=== PATIENT | female | born 1950 | race Caucasian/White ===

== ENCOUNTER 2018-04-25 09:08 | Emergency (ER) | payer SELFPAY ==
[~2018-04-25] VITALS: Ht 172.7 cm; Wt 77.1 kg
--- NOTE | 2018-04-25 10:00 | NUR ---
MSE DONE BY DR KHANNA AT BEDSIDE ROOM 04B. PATIENT A & O X4.
[2018-04-25] MEDS ORDERED: KETOROLAC TROMETHAMINE 30 MG INJ IM ONE (10:15)
[2018-04-25] MEDS ORDERED: KETOROLAC TROMETHAMINE 30 MG INJ ONE (10:21)
--- NOTE | 2018-04-25 10:28 | NUR ---
Patient discharged to home in stable conditon. Written and verbal after care instructions given. Patient and verbalizes understanding of instructions. Copy of test results given.
[2018-04-25 10:30] VITALS: BP 147/83
== END 2018-04-25 10:31 | disposition home or self-care (01) ==
LOC: ER 09:09
DX: M54.5 Low back pain (principal)
CPT/HCPCS: 74176; 99284; A4663; J1885

== ENCOUNTER 2019-01-20 22:55 | Emergency (ER) | payer MEDICARE ==
[~2019-01-20] VITALS: Ht 172.7 cm; Wt 72.6 kg
--- NOTE | 2019-01-20 23:39 | NUR ---
Dr. Lynch at bedside for MSE.
--- NOTE | 2019-01-20 23:49 | NUR ---
Pt out of ER for CT.
--- NOTE | 2019-01-21 | NUR ---
Pt back to ER from CT.
--- NOTE | 2019-01-21 01:41 | NUR ---
Patient discharged to home in stable conditon. Written and verbal after care instructions given. Patient verbalizes understanding of instructions. Patient ambulated out of ER with steady gait, no acute signs of distress, VSS, all belongings taken.
[2019-01-21 01:42] VITALS: BP 115/85
== END 2019-01-21 01:43 | disposition home or self-care (01) ==
LOC: ER 22:58
DX: K20.9 Esophagitis, unspecified (principal); Z88.0 Allergy status to penicillin
CPT/HCPCS: 70490; A4663

== ENCOUNTER 2022-12-26 22:11 | Emergency (ER) | payer MEDICARE ==
[~2022-12-26] VITALS: Ht 170.2 cm; Wt 77.1 kg
[2022-12-26] MEDS ORDERED: OXYCODONE/APAP 5-325 MG TABLET ONE (22:39)
[2022-12-26] MEDS ORDERED: ACETAMINOPHEN ES 500 MG TABLET ONE (22:39)
[2022-12-26] MEDS ORDERED: ALPRAZOLAM 0.25 MG TABLET ONE (22:40)
[2022-12-26] MEDS: ACETAMINOPHEN ES 500 MG TABLET PO ONE (22:45)
[2022-12-26] MEDS: OXYCODONE/APAP 5-325 MG TABLET PO ONE (22:45)
[2022-12-26] MEDS: ALPRAZOLAM 0.25 MG TABLET PO ONE (22:45)
[2022-12-26 22:56] LABS: *BILIRUBIN,URIN NEGATIVE (NEGATIVE); *BLOOD, URINE NEGATIVE (NEGATIVE); *CLARITY,URINE CLEAR (CLEAR); *KETONES,URINE NEGATIVE (NEGATIVE); *UROBILINOGEN,URINE 0.2 E.U./dl (NORMAL); LEUKOCYTE ESTERASE ,URINE TRACE (NEGATIVE); NITRITE, URINE NEGATIVE (NEGATIVE); PH,URINE 6.5 (5.0-8.0); UGLUCOSE NEGATIVE (NEGATIVE)
[2022-12-26 23:01] LABS: *COLOR,URINE STRAW (YELLOW)
[2022-12-26] MEDS ORDERED: CLON0.1T PO (23:10)
[2022-12-26 23:23] LABS: RBC,URINE 0-3 /HPF (0-3)
[2022-12-26 23:24] LABS: BACTERIA,URINE FEW /HPF (NONE SEEN); SQUAMOUS EPITHELIAL CELL,UR MODERATE /HPF (NONE SEEN); YEAST,URINE FEW /HPF (NONE SEEN)
[2022-12-26] MEDS ORDERED: CLONIDINE HCL 0.1 MG TABLET ONE (23:31)
[2022-12-26] MEDS: CLONIDINE HCL 0.1 MG TABLET PO ONE (23:34)
--- NOTE | 2022-12-27 00:30 | NUR ---
Patient discharged to home in stable condition. Written and verbal after care instructions given. Patient verbalizes understanding of instructions. Stressed follow up or return to ER for worsening s/s. Patient ambulated with stable gait.
[2022-12-27 01:02] VITALS: BP 148/89
== END 2022-12-27 01:03 | disposition home or self-care (01) ==
LOC: ER 22:11
DX: I10 Essential (primary) hypertension (principal); R51.9 Headache, unspecified
CPT/HCPCS: 93005; A4663; A9150